=== PATIENT | male | born 1955 | race African-American/Black ===

== ENCOUNTER 2018-02-12 18:08 | Emergency (ER) | payer MEDICAID ==
[2018-02-12 18:37] LABS: % BASOPHILS 0.5 % (0.0-2.0); % EOSINOPHILS 1.2 % (0.0-5.0); % MONOCYTES 2.8 % (2.0-10.0); % NEUTROPHILS 88.5 % (40.0-80.0); EOSINOPHILE ABSOLUTE 0.1 Th/cmm (0.1-0.4); HEMATOCRIT 40.8 % (41.0-60); HEMOGLOBIN 13.5 gm/dL (12-16); LYMPHOCYTE ABSOLUTE 0.6 Th/cmm (1.5-3.0); MEAN CELL VOLUME 90.9 fl (80-99); MEAN PLATELET VOLUME 7.4 fl; MONOCYTE ABSOLUTE 0.2 Th/cmm (0.3-1.0); NEUTROPHILE ABSOLUTE 7.9 Th/cmm (1.8-8.0); PLATELET COUNT 327 Th/cmm (150-400); RED BLOOD COUNT 4.49 Mil/cmm (4.30-5.70); RED CELL DISTRIBUTION WIDTH 13.1 % (11.5-20.0); WHITE BLOOD COUNT 8.8 Th/cmm (4.8-10.8)
[2018-02-12 18:43] LABS: URINE SOURCE CLEAN C
[2018-02-12 18:46] LABS: URINE BILIRUBIN SMALL (NEGATIVE); URINE BLOOD NEGATIVE (NEGATIVE); URINE GLUCOSE (UA) NEGATIVE (NEGATIVE); URINE KETONE NEGATIVE (NEGATIVE); URINE LEUKOCYTE ESTERASE NEGATIVE (NEGATIVE); URINE NITRATE NEGATIVE (NEGATIVE); URINE PH 5.5 (4.6 - 8.0); URINE PROTEIN 100 mg/dL (NEGATIVE); URINE UROBILINOGEN 0.2 E.U./dL (0.2 - 1.0)
[2018-02-12 18:47] LABS: URINE CLARITY CLEAR (CLEAR); URINE COLOR YELLOW; URINE MICROSCOPIC INDICATED? YES
[2018-02-12 18:50] LABS: INR 0.87 (0.5-1.4); PROTHROMBIN TIME (TEST) 9.2 SECONDS (9.5-11.5)
[2018-02-12 18:50] LABS: URINE BACTERIA FEW /hpf (NONE SEEN); URINE EPITHELIAL CELLS FEW /lpf (FEW); URINE WBC 0-2 /hpf (0-5)
[2018-02-12 18:51] LABS: URINE COARSE GRANULAR CAST 0-2 /lpf (NONE SEEN)
[2018-02-12 18:54] LABS: ALB/GLOB RATIO 1.1 (1.0-1.8); ALBUMIN 4.5 gm/dL (4.2-5.5); ALKALINE PHOSPHATASE 70 U/L (34-104); ANION GAP 14.5 (7.0-16.0); BILIRUBIN,TOTAL 0.7 mg/dL (0.3-1.0); BUN - UREA NITROGEN 25 mg/dL (7-25); CALCIUM SERUM 9.7 mg/dL (8.6-10.3); CARBON DIOXIDE 23.8 mEq/L (21.0-31.0); CHLORIDE 100 mEq/L (98-107); CREATININE - SERUM 1.1 mg/dL (0.7-1.3); GFR AFRICAN-AMERICAN > 60.0 ml/min (>90); GFR NON AFRICAN-AMERICAN > 60.0 ml/min; GLUCOSE 239 mg/dL (70-105); POTASSIUM SERUM 4.3 mEq/L (3.5-5.1); SGOT 13 U/L (13-39); SGPT/ALT 10 U/L (7-52); SODIUM SERUM 134 mEq/L (136-145); TOTAL PROTEIN,SERUM 8.5 gm/dL (6.0-8.3)
[2018-02-12 18:56] LABS: AMPHETAMINE URINE NEGATIVE (NEGATIVE); BARBITURATES URINE NEGATIVE (NEGATIVE); BENZODIAZEPINES QUAL URINE NEGATIVE (NEGATIVE); CANNABINOID THC POSITIVE (NEGATIVE); COCAINE METABOLITE QUAL URINE NEGATIVE (NEGATIVE); METHADONE URINE NEGATIVE (NEGATIVE); METHAMPHETAMINES QUAL URINE NEGATIVE (NEGATIVE); OPIATES (MORPHINE) QUAL. URINE NEGATIVE (NEGATIVE); PHENCYCLIDINE (PCP) URINE NEGATIVE (NEGATIVE); TRICYCLICS (TCA) QUAL. URINE NEGATIVE (NEGATIVE)
--- NOTE | 2018-02-12 19:11 | ED Physician Chart ---
ED Chief Complaint/HPI - Patient Information Date Seen:: 02/12/18 Time Seen:: 18:16 Chief Complaint:: vomiting History of Present Illness:: THIS IS A 62 YO MALE WHO STATES THAT HE HAS BEEN VOMITING TODAY AND HE THINKS IT IS BECAUSE OF THE ANTIBIOTICS THAT HE HAS BEEN TAKING FOR A FOOT INFECTION. HE DENIES ABDOMINAL PAIN AND DIARRHEA. HE DENIES USING DRUGS OR DRINKING ALCOHOL. HE DENIES HAVING DIABETES AND HEART DISEASE. HE DENIES HAVING FEVER, COUGH OR SORETHROAT. Allergies:: Allergies Allergy/AdvReac Type Severity Reaction Status Date / Time No Known Allergies Allergy Verified 02/12/18 18:14 Vitals:: Vital Signs - 8 hr 02/12/18 18:16 Temp 99.9 F HR 89 RR 16 BP 143/83 O2 Sat % 95 Historian:: Patient Review:: Nurse's Note Reviewed ED Review of Systems - Review of Systems General/Constitutional: No fever, No chills, No weight loss, No weakness, No diaphoresis, No edema, No loss of appetite Skin: No skin lesions, No rash, No bruising Head: No headache, No light-headedness Eyes: No loss of vision, No pain, No diplopia ENT: No earache, No nasal drainage, No sore throat, No tinnitus Neck: No neck pain, No swelling, No thyromegaly, No stiffness, No mass noted Cardio Vascular: No chest pain, No palpitations, No PND, No orthopnea, No edema Pulmonary: No SOB, No cough, No sputum, No wheezing GI: Nausea, Vomiting, No diarrhea, No pain, No melena, No hematochezia, No constipation, No hematemesis G/U: No dysuria, No frequency, No hematuria Musculoskeletal: No bone or joint pain, No back pain, No muscle pain Endocrine: No polyuria, No polydipsia Psychiatric: No prior psych history, No depression, No anxiety, No suicidal ideation Hematopoietic: No bruising, No lymphadenopathy Allergic/Immuno: No urticaria, No angioedema Neurological: No syncope, No focal symptoms, No weakness, No paresthesia, No headache, No seizure, No dizziness, No confusion, No vertigo ED Past Medical History - Past Medical History Obtainable: Yes Past Medical History: No significant medical hx ED Physical Exam - Physical Examination Other GI comments:: ABDOMEN IS SOFT AND NOT TENDER. ED Labs/Radiology/EKG Results - Lab Results Results: Laboratory Tests 02/12/18 02/12/18 02/12/18 18:30 18:30 18:30 WBC 8.8 RBC 4.49 Hgb 13.5 Hct 40.8 L MCV 90.9 MCH 30.0 MCHC Differential 33.0 RDW 13.1 Plt Count 327 MPV 7.4 Neutrophils % 88.5 H Lymphocytes % 7.0 L Monocytes % 2.8 Eosinophils % 1.2 Basophils % 0.5 Neutrophils (Manual) Not Reportable PT 9.2 L INR 0.87 Sodium Potassium Chloride Carbon Dioxide Anion Gap BUN Creatinine Est GFR ( Amer) Est GFR (Non-Af Amer) BUN/Creatinine Ratio Glucose Calcium Total Bilirubin AST ALT Alkaline Phosphatase Troponin I Total Protein Albumin Globulin Albumin/Globulin Ratio Urine Source Urine Color Urine Clarity Urine pH Ur Specific Gardner Urine Protein Urine Glucose (UA) Urine Ketones Urine Blood Urine Nitrate Urine Bilirubin Urine Urobilinogen Ur Leukocyte Esterase Urine RBC Urine WBC Ur Epithelial Cells Urine Bacteria Coarse Granular Casts Urine Mucus Urine Opiates Screen Urine Methadone Screen Ur Barbiturates Screen Ur Tricyclics Screen Ur Phencyclidine Scrn Amphetamines Screen U Methamphetamines Scrn U Benzodiazepines Scrn U Cocaine Metab Screen U Cannabinoids Screen Ethyl Alcohol < 10 02/12/18 02/12/18 02/12/18 18:30 18:30 18:40 WBC RBC Hgb Hct MCV MCH MCHC Differential RDW Plt Count MPV Neutrophils % Lymphocytes % Monocytes % Eosinophils % Basophils % Neutrophils (Manual) PT INR Sodium 134 L Potassium 4.3 Chloride 100 Carbon Dioxide 23.8 Anion Gap 14.5 BUN 25 Creatinine 1.1 Est GFR ( Amer) > 60.0 Est GFR (Non-Af Amer) > 60.0 BUN/Creatinine Ratio 22.7 Glucose 239 H Calcium 9.7 Total Bilirubin 0.7 AST 13 ALT 10 Alkaline Phosphatase 70 Troponin I 0.01 Total Protein 8.5 H Albumin 4.5 Globulin 4.0 Albumin/Globulin Ratio 1.1 Urine Source Urine Color Urine Clarity Urine pH Ur Specific Gardner Urine Protein Urine Glucose (UA) Urine Ketones Urine Blood Urine Nitrate Urine Bilirubin Urine Urobilinogen Ur Leukocyte Esterase Urine RBC Urine WBC Ur Epithelial Cells Urine Bacteria Coarse Granular Casts Urine Mucus Urine Opiates Screen NEGATIVE Urine Methadone Screen NEGATIVE Ur Barbiturates Screen NEGATIVE Ur Tricyclics Screen NEGATIVE Ur Phencyclidine Scrn NEGATIVE Amphetamines Screen NEGATIVE U Methamphetamines Scrn NEGATIVE U Benzodiazepines Scrn NEGATIVE U Cocaine Metab Screen NEGATIVE U Cannabinoids Screen POSITIVE H Ethyl Alcohol 02/12/18 18:40 WBC RBC Hgb Hct MCV MCH MCHC Differential RDW Plt Count MPV Neutrophils % Lymphocytes % Monocytes % Eosinophils % Basophils % Neutrophils (Manual) PT INR Sodium Potassium Chloride Carbon Dioxide Anion Gap BUN Creatinine Est GFR ( Amer) Est GFR (Non-Af Amer) BUN/Creatinine Ratio Glucose Calcium Total Bilirubin AST ALT Alkaline Phosphatase Troponin I Total Protein Albumin Globulin Albumin/Globulin Ratio Urine Source CLEAN C Urine Color YELLOW Urine Clarity CLEAR Urine pH 5.5 Ur Specific Gardner >= 1.030 Urine Protein 100 H Urine Glucose (UA) NEGATIVE Urine Ketones NEGATIVE Urine Blood NEGATIVE Urine Nitrate NEGATIVE Urine Bilirubin SMALL H Urine Urobilinogen 0.2 Ur Leukocyte Esterase NEGATIVE Urine RBC 2-5 H Urine WBC 0-2 Ur Epithelial Cells FEW Urine Bacteria FEW Coarse Granular Casts 0-2 H Urine Mucus MODERATE Urine Opiates Screen Urine Methadone Screen Ur Barbiturates Screen Ur Tricyclics Screen Ur Phencyclidine Scrn Amphetamines Screen U Methamphetamines Scrn U Benzodiazepines Scrn U Cocaine Metab Screen U Cannabinoids Screen Ethyl Alcohol ED Assessment - Assessment General Assessment: CYCLIC VOMITING FROM THC INTAKE ED Septic Shock - . Is Septic Shock (SBP<90, OR Lactate>4 mmol\L) present?: No - <6hrs of presentation: Vital Signs: Vital Signs - 8 hr 02/12/18 18:16 Temp 99.9 F HR 89 RR 16 BP 143/83 O2 Sat % 95 ED Reassessment (Disposition) - Reassessment Reassessment Condition:: Improved - Diagnosis Diagnosis:: CYCLIC EMESIS SECONDARY TO THC ABUSE - Aftercare/Follow up Instructions Aftercare/Follow-Up Instructions:: Counseled pt regarding lab results/diagnosis & need follow up, Refer to Discharge Instructions, Counseled pt & family regarding lab results/diagnosis & need follow up - Patient Disposition Discharge/Transfer:: Home Condition at Disposition:: Improved
--- NOTE | 2018-02-13 10:10 | Diagnostic Imaging Report ---
CT abdomen and pelvis without intravenous contrast Indication: Vomiting Comparison: None, Technique: Axial images were obtained from the lung bases to the bilateral proximal femurs without IV contrast. Coronal reconstructions were made. total DLP: [id number], CTDI10.1 FINDINGS: Hypoventilatory and atelectatic changes of the lungs are noted. Evaluation of the solid organs is limited due to lack of IV contrast. Note the hepatic dome is incompletely visualized on this exam. Exam is also limited due to motion. Small hiatal hernia is noted. No evidence of focal hepatic, splenic, or pancreatic lesions. No focal adrenal lesions. No evidence of hydronephrosis or focal renal lesions. Small fat-containing umbilical hernia is noted. Moderate stool is seen throughout the colon. Mild diverticulosis is noted without evidence of diverticulitis. No appendicitis. Underdistention versus gastric wall thickening is seen along the greater curvature. Small left and moderate right fat-containing inguinal hernias are noted. Mild atherosclerosis is noted. Degenerative changes of the spine are noted. IMPRESSION: Limited exam due to lack of IV and oral contrast and motion. No evidence of bowel obstruction. Diverticulosis without evidence of diverticulitis Underdistention versus mild gastric wall thickening along the greater curvature. Inflammatory or infiltrative process cannot be excluded. Clinical correlation and follow-up is recommended. Small hiatal hernia. Mild atherosclerosis.
[2018-02-14 17:23] LABS: A1C % 6.5 % (4.0-6.0)
== END 2018-02-12 20:00 | disposition home or self-care (01) ==
LOC: ER 18:08
DX: G43.A0 Cyclical vomiting, in migraine, not intractable (principal); F12.10 Cannabis abuse, uncomplicated
CPT/HCPCS: 36415-UA; 80053-TC; 80307; 80320-TC; 81001-TC; 83036-90; 84443-TC; 84484-TC; 85007-TC; 85025-TC; 85610-TC; J0696; J2405